=== PATIENT | female | born 2000 | race Caucasian/White ===

== ENCOUNTER 2025-03-26 17:54 | Emergency (ER) | payer OTHER, SELFPAY ==
--- OUTSIDE RECORDS SUMMARY | 2025-03-25 12:20 | XMS_ITS | Encounter Summary ---
Author Organization [facility] Address [address] [place] [id number] Care Team Providers Care Machine Tool Designer Name Role Phone Anna Brown NP Primary Care Provider [phone] Reason for Referral * Consultation (Routine) - New Request Specialty Diagnoses / Procedures Referred By Robert worley Referred To Contact NEPHROLOGY Diagnoses Kidney congenitally absent, left Procedures OFFICE/OUTPATIENT NEW LOW MDM 30-44 MINUTES OFFICE/OUTPT VISIT,NEW,LEVL IV OFFICE/OUTPT VISIT,NEW,LEVL V OFFICE/OUTPT VISIT,EST,LEVL III OFFICE/OUTPT VISIT,EST,LEVL IV OFFICE/OUTPT VISIT,EST,LEVL V Anna Brown NP [address] [place] [address] Phone: tel: fax: [facility] Medical [facility] [place] [id number] [place] [address] Phone: tel: fax: Referral ID Status Reason Start Date Expiration Date Visits Requested Visits Authorized [id number] New Request Specialty Services 04/24/2026 1 1 Reason for Visit * Reason Comments Weight Problem Encounter Details Date Type Department Care Team (Late st Contact Info) Description 03/25/2025 12:20 PM CDT Office Visit [facility] [place] [address] [place] [address] Anna Brown NP [address] [facility] [address] [place] [address] Weight Problem Social History Tobacco Use Types Packs/Day Years Used Date Smoking Tobacco: Never Passive Smoke Exposure: Never Smokeless Tobacco: Never Alcohol Use Standard Drinks/Week Comments Yes 8 (1 standard drink = 0.6 oz pur e alcohol) PHQ-2 Answer Date Recorded Patient Health Questionnaire-2 Score 1 02/22/2025 Comments No Sex and Gender Information Value Date Recorded Sex Assigned at Female 11/15/2024 10:41 AM CDT Legal Sex Female 10:16 AM CDT Gender Identity Female 11/15/2024 10:41 AM CDT Sexual Orientation Not on file documented as of this encounter Last Filed Vital Signs Vital Sign Reading Time Taken Comments Blood Pressure 115/83 03/25/2025 12:18 PM CDT Pulse 88 03/25/2025 12:18 PM CDT Temperature 36.6 C (97.8 F) 03/25/2025 12:18 PM CDT Respiratory Rate 16 03/25/2025 12:18 PM CDT Oxygen Saturation 98% 03/25/2025 12:18 PM CDT Inhaled Oxygen Concentration - - Weight 84.8 kg (187 lb) 03/25/2025 12:18 PM CDT Height 157.5 cm (5' 2) 03/25/2025 12:18 PM CDT Body Mass Index 34.2 03/25/2025 12:18 PM CDT documented in this encounter Patient Instructions * Patient Instructions* Anna Brown NP - 03/25/2025 12:20 PM CDT Paleo or mediterranean diet - high in lean meats such as chicken, fish, turkey, fresh fruit and vegetables. Limit carbohydrates and choose whole grain products (potatoes, bread, pasta, rice) limit processed food, limit red meat and greasy/fried/fatty foods. 64 oz water Increase protein, myfitnesspal Switch from zoloft to prozac, stop zoloft start prozac the next day. Monitor for dizziness, if occurs may take 1/2 tab zoloft for 5-7 days with prozac. documented in this encounter Progress Notes * Anna Brown NP - 03/25/2025 12:20 PM CDTSummary: weight gain Images from the original note were not included. Internal Medicine Outpatient Progress Note CC: Weight Problem HPI: Elaine Jaime is a 24-year-old female who presents to discuss weight gain. History of Present Illness The patient presents with weight gain, anxiety, and kidney issues. She has experienced gradual weight gain from 170 to 187 pounds over the past few years. She attributes this to her control and anxiety medications, particularly Zoloft, which she started last March. She reports fluctuating appetite and a diet consisting of cereal, oatmeal, pasta or turkey, and balanced dinners. She occasionally consumes Fruit Loops with 2% milk before bed, has eliminated soda, and reduced caffeine intake, improving bladder function. She finds Zoloft effective for anxiety but has not engaged in sexual intercourse recently due to her partner's erectile dysfunction so she denies known sexual side effects. Weight has increased 15 pounds since last year starting sertraline. Recent CT scan showing normal right kidney with congenitally absent left kidney. Patient was referred to urology for consult -they recommend seeing a house manager, regular labs to evaluate kidney function. They also recommend avoiding dark soda and making sure she stays well-hydrated. States Topamax has helped with her headaches, she is unsure if her appetite has change states her appetite fluctuates. Patient has history of below: Patient Active Problem List Diagnosis Irritable bowel syndrome with constipation Dyspareunia, female Family history of breast cancer Other fatigue History of iron deficiency Anxiety Migraine without aura and without status migrainosus, not intractable Kidney congenitally absent, left Abnormal kidney function Review of Systems Constitutional: Positive for unexpected weight change. HENT: Negative. Eyes: Negative. Respiratory: Negative. Cardiovascular: Negative. Neurological: Negative. Psychiatric/Behavioral: Negative. Past Medical History: Past Medical History[1] Family History: Family History[2] Social History: Social History[3] Medications: Medications Taking[4] Allergies: Review of patient's allergies indicates: Latex, Biaxin [clarithromycin], Cephalosporins, Codeine, Omnicef [cefdinir], and Vantin [cefpodoxime] ? Objective: Filed Vitals: 03/25/25 1218 BP: 115/83 Pulse: 88 Resp: 16 Temp: 97.8 ??F (36.6 ??C) TempSrc: Core SpO2: 98% Weight: 84.8 kg (187 lb) Height: 1.575 m (5' 2) Body mass index is 34.2 kg/m??. Physical Exam Constitutional: Appearance: Normal appearance. Eyes: Conjunctiva/sclera: Conjunctivae normal. Cardiovascular: Rate and Rhythm: Normal rate and regular rhythm. Heart sounds: Normal heart sounds. No murmur heard. Pulmonary: Effort: Pulmonary effort is normal. No respiratory distress. Breath sounds: Normal breath sounds. No wheezing. Skin: General: Skin is warm and dry. Neurological: Mental Status: She is alert. Psychiatric: Mood and Affect: Mood normal. Judgment: Judgment normal. Assessment and Plan: Assessment & Plan 1. Weight gain: - 15-pound gain over the past year, likely due to medication. - Recommended switch from Zoloft to Prozac 20 mg, discontinue Zoloft and start Prozac the next day.If dizziness occurs, take half a tablet of Zoloft for a few days while starting Prozac. - Increase protein and water intake, reduce carbohydrates, consider intermittent fasting, monitor calories with MyFitnessPal, replace bedtime snack with lower- calorie option, increase physical activity. Referral to rubber down if needed. - Declines medication at this time, consider at a later date if still struggling with weight loss. 2. Anxiety: - Current management effective. - Discussed switch to Prozac, which is weight neutral. Informed about potential initial side effects like dizziness. If adverse effects occur, overlap Zoloft and Prozac by taking half a tablet of Zoloft for a few days. 3. Left kidney congenitally absent - Schedule appointment with house manager for further evaluation and management. Referral sent. - Regular blood work to monitor kidney function, maintain hydration, avoid dark sodas and NSAIDs. Most recent GFR 79 slightly reduced with no microalbuminuria. 1. Weight gain 2. Kidney congenitally absent, left - Ambulatory referral to Nephrology ([facility]) 3. Abnormal kidney function 4. AVA (generalized anxiety disorder) - FLUoxetine (PROZAC) 20 MG capsule; Take 1 capsule (20 mg total) by mouth daily. Dispense: 30 capsule; Refill: 2 Tobacco: Counseling given: Not Answered I personally spent a total of 25 minutes on the day of the encounter. This includes [id number] and lhz-lhxq-dl-face time I provided on the day of the encounter & excludes time spent performing separately reportable services. Side effects and less common but more severe adverse effects of recommended medical therapies were explained to the patient. Patient reminded to use MyChart or telephone follow up prn if symptoms change, worsen, or persist, or if side effect of treatment is experienced. RTC in August as scheduled, sooner if needed with medication change. This document was created in part by using voice recognition software and was reviewed by the author. If errors are present, please bring them to your provider's attention. ANNA BROWN NP 03/25/2025 [facility] [[facility]] Past Medical History: Diagnosis Date Anxiety Cholelithiasis PONV (postoperative nausea and vomiting) Small kidney on 1 of her kidneys Wears contact lenses [2] Family History Problem Relation Name Age of Onset Hypertension Mother Svetlana Jaime Breast Cancer Mother Svetlana Jaime Cancer Mother Svetlana Jaime Heart Disease Father Ehsan Jaime [place]- 6 stents Liver Disease Father Ehsan Jaime Kidney Disease Paternal Grandmother Lauren Jaime Ovarian Cancer Paternal Grandmother Lauren Jaime Diabetes Maternal Grandmother Miley Kenny [3] Social History Tobacco Use Smoking status: Never Passive exposure: Never Smokeless tobacco: Never Vaping Use Vaping status: Never Used Substance Use Topics Alcohol use: Yes Alcohol/week: 8.0 standard drinks of alcohol Types: 1 Glasses of wine, 2 Shots of liquor, 3 Standard drinks or equivalent per week Drug use: Never [4] Outpatient Medications Marked as Taking for the 03/25/25 encounter (Office Visit) with Anna Brown NP Medication Sig Dispense Refill baclofen (LIORESAL) 10 MG tablet Take 1 tablet (10 mg total) by mouth 3 (three) times daily. 15 tablet 0 Blood Glucose Monitoring Suppl (ONE TOUCH ULTRA 2) w/Device Kit Check blood sugar twice a day before meals. 1 kit 0 desipramine (NORPRAMIN) 10 MG Tab tablet 2 tablets (20 mg total) nightly at bedtime. dicyclomine (BENTYL) 10 MG capsule Take 1 capsule (10 mg total) by mouth as needed. FLUoxetine (PROZAC) 20 MG capsule Take 1 capsule (20 mg total) by mouth daily. 30 capsule 2 Glucose Blood test strip Check blood sugar twice a day before meals. 300 strip 1 KURVELO 0.15-30 MG-MCG tablet Take 1 tablet by mouth daily. Lancets (ONETOUCH ULTRASOFT) lancets Check blood sugar twice a day before meals. 100 each 1 multi vitamin/minerals (THERA-M ENHANCED) tablet Take 1 tablet by mouth daily. ondansetron (ZOFRAN-ODT) 4 MG disintegrating tablet Take 1 tablet (4 mg total) by mouth every 6 (six) hours as needed for Nausea. 30 tablet 2 topiramate (TOPAMAX) 25 MG tablet Take 1 tablet (25 mg total) by mouth daily. For headaches 90 tablet 1 ubrogepant (UBRELVY) 100 MG tablet Take 1 tablet (100 mg total) by mouth 2 (two) times daily as needed for Migraine. Max of 2 tablets (200 mg) in 24 hours 10 tablet 2 documented in this encounter Plan of Treatment Upcoming Encounters Date Type Department Care Team (Late st Contact Info) Description 07/01/2025 2:00 PM X RAY NURSE [facility] [address] [facility], [place] [address] [place] [address] Jerry Sparrow MD [address] [facility] [address] [place] [address] 08/21/2025 8:00 AM CDT [facility] [place] [address] [place] [address] Anna Brown NP [address] [place] [address] Scheduled Referrals Name Type Priority Associated Diagnoses Orde r Schedule Ambulatory referral to Nephrology ([facility]) Referral Routine Kidney congenitally absent, left Ordered: 03/25/2025 documented as of this encounter Visit Diagnoses Diagnosis Weight gain- Primary Abnormal weight gain Kidney congenitally absent, left Congenital renal agenesis and dysgenesis Abnormal kidney function Unspecified disorder of kidney and ureter AVA (generalized anxiety disorder) Generalized anxiety disorder documented in this encounter Additional Health Concerns Assessment Noted Time PHQ-9 Depression Total Score: 4 02/23/20 25 9:26 AM CDT documented as of this encounter Care Teams Machine Tool Designer Relationship Specialty Start Date End Date Anna Brown, STORE RECEIVER [address] [facility] [address] [place] [address] PCP - General NURSE PRACTITIONER 04/03/24 documented as of this encounter
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
[2025-03-26 17:58] VITALS: BP 151/96; PULSE 102; RESP 16; TEMP 36.4; O2SAT 100
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
[2025-03-26 18:58] LABS: BEDSIDEPREGUCG Negative (Negative)
[2025-03-26 19:10] LABS: Estimated CRCL calculation 107 ml/min; Estimated Glomerular Filt Rate > 60
[2025-03-26 19:23] LABS: Hematocrit 43.9 % (37.0-47.0); Hemoglobin 14.2 g/dL (12.0-15.0); Immature Granulocyte Percent A 0.6 % (0-0.5); Lymphocytes Absolute Auto 3.12 K/mm3 (0.9-3.2); Mean Corpuscular HGB Conc 32.3 g/dl (32-36); Mean Corpuscular Hemoglobin 29.0 pg (26-34); Mean Corpuscular Volume 89.8 fl (80-100); Nucleated Red Blood Cells Absolute Auto 0.000 K/mm3 (0.0-0.012); Nucleated Red Blood Cells Perc 0.0 % (0.0-0.2); Platelet Count Result 306 k/mm3 (150-375); Red Blood Count 4.89 M/mm3 (4.2-5.4); White Blood Count 14.1 K/mm3 (4.5-10.0)
[2025-03-26 19:33] LABS: Pregnancy On Board Control Positive
[2025-03-26 19:35] LABS: Add Urine Microscopic? YES; Appearance Urine Turbid (Clear); Glucose Urine UA Negative (Negative); Leukocyte Esterase Ur Trace LEU/UL (Negative); Nitrate Urine Negative (Negative); Non Pathogenic Casts 0-2; Specific Grav Ur 1.024 (1.001-1.035)
[2025-03-26 19:38] LABS: Alanine Aminotransferase 17 U/L (6-35); Albumin Level 4.7 g/dL (3.5-5.1); Alkaline Phosphatase 78 U/L (38-126); Anion Gap 10 mmol/L (4-12); Aspartate Amino Transferase 26 U/L (14-36); Bilirubin,Total 0.4 mg/dL (0.2-1.3); Blood Urea Nitrogen 18 mg/dL (7-17); Calcium 9.8 mg/dL (8.4-10.2); Carbon Dioxide 24 mmol/L (22-30); Chloride 103 mmol/L (98-107); Estimated CRCL calculation 99 ml/min; Estimated Glomerular Filt Rate > 60; Glucose 88 mg/dL (65-110); Potassium 3.8 mmol/L (3.4-5.0); Sodium 137 mmol/L (137-145); Total Protein 7.9 g/dL (6.3-8.2)
[2025-03-26] MEDS: fentaNYL CITRATE INJ (*CRX) 100 MCG/2 ML VIAL 50 MCG IV PUSH (19:48)
--- OUTSIDE RECORDS SUMMARY | 2025-03-26 19:57 | XMS_ITS | Encounter Summary ---
Author Organization [facility] Address [address] [place] [address] Care Team Providers Care Script Girl Name Role Phone Gerda Brown ARCHITECTURE DEPARTMENT CHAIR Primary Care Provider [phone] Encounter Details Date Type Department Care Team (Latest Contact Info) Description 03/07/2025 Results Follow-Up [facility] [address] [place] [address] Gerda Brown, ARCHITECTURE DEPARTMENT CHAIR [address] [place] [address] ALBUMIN URINE RANDOM W/CREATININE, CHLAM/GC/TRICHOMONA S PROFILE Social History Tobacco Use Types Packs/Day Years [...] on file documented as of this encounter Plan of Treatment Upcoming Encounters Date Type Department Care Team (Late st Contact Info) Description 07/01/2025 2:00 PM DIRECTOR MATERNAL CHILD Office Visit [facility] [address], [address] [id number] Jerry Sparrow MD 3 [facility], [address] [address] 08/21/2025 8:00 AM CDT Office Visit [facility] [place] [address] [place] [address] Gerda Brown NP [address] [place] [address] documented as of this encounter Visit Diagnoses Not on filedocumented in this encounter Additional Health Concerns Assessment Noted Time PHQ-9 Depression Total Score: 4 02/23/20 25 9:26 AM CDT documented as of this encounter Care Teams Script Girl Relationship Specialty Start Date End Date Gerda Brown NP [address] [place] [address] PCP - General NURSE PRACTITIONER 04/03/24 documented as of this encounter
--- OUTSIDE RECORDS SUMMARY | 2025-03-26 19:57 | XMS_ITS | Encounter Summary ---
Author Organization [facility] Address [address] [place] [address] Phone Care Team Providers Care Bobbin Sorter Name Role Phone Gerda Brown NP Primary Care Provider [phone] Encounter Details Date Type Department Care Team (Late st Contact Info) Description 06/16/2023 Orders Only [facility] Scanning, Provider Social History Tobacco Use Types Packs/Day Years Used Date Smoking Tobacco: Never Smokeless Tobacco: Never Alcohol Use Standard Drinks/Week Comments Yes 0 (1 standard drink = 0.6 oz pur e alcohol) Comments Unknown Sex and Gender Information Value Date Recorded Sex Assigned at Not on file 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 Gender Identity Not on file Sexual Orientation Not on file documented as of this encounter Plan of Treatment Not on file documented as of this encounter Procedures Procedure Name Priority Date/Time Associated Diagnosis Comments SCAN - LABS 06/16/2023 documented in this encounter Results * SCAN - LABS (06/16/2023) us Provider Scanning Edited Result - Final documented in this encounter Visit Diagnoses Not on filedocumented in this encounter Care Teams Bobbin Sorter Relationship Specialty Start Date End Date Gerda Brown NP [address] [place] [address] PCP - General Internal Medicine 08/13/24 documented as of this encounter
--- OUTSIDE RECORDS SUMMARY | 2025-03-26 19:57 | XMS_ITS | Clinical Summary ---
Author Organization [email or web address] Address [address] [place] [address] Care Team Providers Care Pharmacy Grad Intern Name Role Phone Gerda Brown NP Primary Care Provider [phone] Allergies Active Allergy Reactions Criticality Noted Date Comments Bacitracin Zinc-Polymyxin B Other (See comments) 08/13/2024 Reaction: Cephalosporins Cephapirin Other (See comments) 08/13/2024 Reaction: Clarithromycin Codeine Hives,Itching,Rash High 10/23/2020 Latex Redness Low 04/15/2023 Sodium Benzoate Rash Medium 12/17/2010 Rash Medications levonorgestreL- ethinyl estrad (SEASONALE) 0.15 mg-30 mcg (91) per tablet TK 1 T PO QD 11/21/2019 Active multivitamin capsule Take 1 capsule by mouth daily Active sertraline (ZOLOFT) 25 mg tablet Take 1 tablet (25 mg total) by mouth daily 04/04/2024 Active desipramine (NOPRAMIN) 10 mg tablet Take 2 tablets (20 mg total) by mouth nightly 60 tablet 11 08/13/2024 Active dicyclomine (BENTYL) 10 mg capsule Take 1 capsule (10 mg total) by mouth 4 (four) times a day as needed (abdominal pain) 30 capsule 11 08/13/2024 Active Active Problems Problem Noted Date Diagnosed Date Symptoms referable to hand joint 12/17/2019 Dysfunction of eustachian tube 03/19/2015 Non-smoker 03/19/2015 Perforation of ear drum 03/11/2015 Arthralgia of shoulder 12/15/2012 Surgical History Surgery Date Site/Laterality Comments TONSILLECTOMY WISDOM TOOTH EXTRACTION Family History Medical History Relation Name Comments Heart disease Father Arthritis Mother Relation Name Status Comments Father Mother Social History Tobacco Use Types Packs/Day Years Used Date Smoking Tobacco: Never Smokeless Tobacco: Never Tobacco Cessation:Counseling Given: Not Answered Alcohol Use Standard Drinks/Week Comments Yes 0 (1 standard drink = 0.6 oz pur e alcohol) Comments Unknown Sex and Gender Information Value Date Recorded Sex Assigned at Not on file 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 Gender Identity Not on file Sexual Orientation Not on file Obstetrics History Last Filed Vital Signs Vital Sign Reading Time Taken Comments Blood Pressure 117/81 08/13/2024 8:17 AM CDT Pulse 79 08/13/2024 8:17 AM CDT Temperature 36.6 C (97.9 F) 08/13/2024 8:17 AM CDT Respiratory Rate - - Oxygen Saturation 97% 02/05/2010 4:30 PM CDT Inhaled Oxygen Concentration - - Weight 81.6 kg (180 lb) 08/13/2024 8:17 AM CDT Height 157.5 cm (5' 2) 08/13/2024 8:17 AM CDT Body Mass Index 32.92 08/13/2024 8:17 AM CDT Plan of Treatment Health Maintenance Due Date Last Done Comments Cervical Cancer Screening 1999 Depression Screening 1999 Hepatitis C Screening 1999 Regular Well Visit/Exam 18-64 09/08/2017 DTaP/Tdap/Td Vaccine (7 - Td or Tdap) 01/15/2021 01/15/2011, 12/03/2004, 03/14/2001, Additional history exists Influenza Vaccine (#1) 2025 , 04/12/2022, 03/03/2021, Additional history exists Hepatitis B Screening Completed 06/20/2000 , 1999, 1999 Pneumococcal vaccine <65 Completed 001, 05/10/2000, 01/25/2000, Additional history exists Varicella Vaccines Completed 05/06/2007, 09/24/2000 HPV Vaccines Completed 07/12/2013, 12/05, 12/24/2011 Insurance [facility] Care Teams Pharmacy Grad Intern Relationship Specialty Start Date End Date Gerda Brown NP [address] [place] [address] PCP - General Internal Medicine 08/13/24
--- OUTSIDE RECORDS SUMMARY | 2025-03-26 19:57 | XMS_ITS | Encounter Summary ---
Author Organization [facility] Address [address] [place] [address] Care Team Providers Care Health Promotion Coordinator Name Role Phone Gerda Brown MAPPING ENGINEER Primary Care Provider [phone] Encounter Details Date Type Department Care Team (Latest Contact Info) Description 02/22/2025 Results Follow-Up [facility] - [place] [address] [place] [address] Gerda Brown, MAPPING ENGINEER [address] [place] [address] CT ABD+PEL KIDNEY STONE, CBC W/DIFF AUTOMATED, COMPREHENSIVE METABOLIC PANEL, Additional followed-up results: 2 Social History Tobacco Use Types Packs/Day Years [...] on file documented as of this encounter Functional Status * Over the past 2 weeks, how often have you been bothered by any of the following problems? Question Answer Date of Assessment Author Status Little interest or pleasure in doing things Several days 02/22/2025 9:26 AM CDT Tonia Mayer MA Acti ve Feeling down, depressed, or hopeless Not at all 02/22/2025 9:26 AM Tonia Miranda MA Active Patient Health Questionnaire-2 Score 1 02/22/2025 9:26 AM Tonia Miranda M A Active * Question Answer Date of Assessment Author Status Trouble falling or staying asleep, or sleeping too much Several days 02/22/2025 9:26 AM Tonia Miranda MA Active Feeling tired or having little energy Several days 02/22/2025 9:26 AM Tonia Miranda MA Active Poor appetite or overeating Several days 02/22/2025 9:26 AM Tonia Miranda MA Active Feeling bad about yourself - or that you are a failure or have let yourself or your family down Not at all 02/22/2025 9:26 AM Tonia Miranda MA Active Trouble concentrating on things, such as reading the newspaper or watching television Not at all 02/22/2025 9:26 AM Tonia Miranda MA Active Moving or speaking so slowly that other people could have noticed? Or the opposite - being so fidgety or restless that you have been moving around a lot more than usual. Not at all 02/22/2025 9:26 AM Tonia Miranda MA Active Thoughts that you would be better off or hurting yourself in some way Not at all 02/22/2025 9:26 AM Tonia Miranda MA Active Patient Health Questionnaire-9 Score 4 02/22/2025 9:26 AM Tonia Miranda MA Active * If you checked off any problems on this questionnaire so far, Question Answer Date of Assessment Author Status How difficult have these problems made it for you to do your work, take care of things at home, or get along with other people? Somewhat difficult 02/22/2025 9:26 AM Tonia Miranda MA Active * Over the last 2 weeks, how often have you been bothered by any of the following problems? Question Answer Date of Assessment Author Status Feeling nervous, anxious, or on edge 0 02/22/2025 9:27 AM Tonia Miranda MA Acti ve Not being able to stop or control worrying 0 02/22/2025 9:27 AM CDT Tonia Mayer MA Act karly Worrying too much about different things 0 02/22/2025 9:27 AM CDT Tonia Mayer MA Act karly Trouble relaxing 0 02/22/2025 9:27 AM CDT Tonia Mayer MA Active Being so restless that it is hard to sit still 0 02/22/2025 9:27 AM CDT Tonia Mayer MA Active Becoming easily annoyed or irritable 0 02/22/2025 9:27 AM CDT Tonia Mayer MA Acti ve Feeling afraid as if something awful might happen 0 02/22/2025 9:27 AM CDT Tonia Mayer MA Acti ve AVA-7 Total Score 0 02/22/2025 9:27 AM CDT Tonia Mayer MA Active documented as of this encounter Plan of Treatment Upcoming Encounters Date Type Department Care Team (Late st Contact Info) Description 07/01/2025 2:00 PM OCCUPATIONAL THERAPIST ASSISTANTS [facility], [address] [address] Jerry Sparrow MD 3 [facility], [address] [address] 08/21/2025 8:00 AM CDT [facility] [place] [address] [place] [address] Gerda Brown NP [address] [place] [address] documented as of this encounter Visit Diagnoses Not on filedocumented in this encounter Additional Health Concerns Assessment Noted Time PHQ-9 Depression Total Score: 4 02/23/20 25 9:26 AM CDT documented as of this encounter Care Teams Health Promotion Coordinator Relationship Specialty Start Date End Date Gerda Brown, MAPPING ENGINEER [address] [facility] [place] [address] PCP - General NURSE PRACTITIONER 04/03/24 documented as of this encounter
--- OUTSIDE RECORDS SUMMARY | 2025-03-26 19:57 | XMS_ITS | Encounter Summary ---
Author Organization [facility] Address [address] [place] [address] Care Team Providers Care Fur Comber Name Role Phone Gerda Brown ENAMEL CRACKER Primary Care Provider [phone] Encounter Details Date Type Department Care Team (Late st Contact Info) Description 05/17/2024 MyChart Message Enc [facility] [address] [place] [address] Gerda Brown, ENAMEL CRACKER [address] [place] [address] Blood Sugar Social History Tobacco Use Types Packs/Day Years Used Date Smoking Tobacco: Never Passive Smoke Exposure: Never Smokeless Tobacco: Never Alcohol Use Standard Drinks/Week Comments Yes 2 (1 standard drink = 0.6 oz pur e alcohol) PHQ-2 Answer Date Recorded Patient Health Questionnaire-2 Score 0 04/04/2024 Comments No Sex and Gender Information Value Date Recorded Sex Assigned at Female 11/15/2024 10:41 AM CDT Legal Sex Female 10:16 AM CDT Gender Identity Female 11/15/2024 10:41 AM CDT Sexual Orientation Not on file documented as of this encounter Plan of Treatment Upcoming Encounters Date Type Department Care Team (Late st Contact Info) Description 07/01/2025 2:00 PM LIME BOILER Office Visit [facility] 3 [facility], [address] [phone] Jerry Sparrow MD 3 [facility], [address] [address] 08/21/2025 8:00 AM CDT Office Visit [facility] [place] [address] [place] [address] Gerda Brown, ENAMEL CRACKER [address] [place] [address] documented as of this encounter Visit Diagnoses Not on filedocumented in this encounter Additional Health Concerns Assessment Noted Time PHQ-9 Depression Total Score: 3 04/04/20 24 12:57 PM CDT documented as of this encounter Care Teams Fur Comber Relationship Specialty Start Date End Date Gerda Brown NP [address] [place] [address] PCP - General NURSE PRACTITIONER 04/03/24 documented as of this encounter
--- OUTSIDE RECORDS SUMMARY | 2025-03-26 19:57 | XMS_ITS | Encounter Summary ---
Author Organization [facility] Address [address] [place] [address] Care Team Providers Care Senior Devops Engineer Name Role Phone Gerda Brown BUSINESS SUPPORT LIAISON Primary Care Provider [phone] Encounter Details Date Type Department Care Team (Late st Contact Info) Description 12/18/2024 MyChart Message Enc [facility] Mult[facility]pecialty [facility] [address] [place] [address] Gerda Brown, BUSINESS SUPPORT LIAISON [address] [place] [address] Allergic Reaction Social History Tobacco Use Types Packs/Day Years [...] st Contact Info) Description 07/01/2025 2:00 PM GAS METER CHECKER Office Visit [facility]pecialty [facility] 3 [facility], [address] [phone] Jerry Sparrow MD 3 [facility], [address] [address] 08/21/2025 8:00 AM CDT Office Visit [facility] [place] [address] [place] [address] Gerda Brown, BUSINESS SUPPORT LIAISON [address] [place] [address] documented as of this encounter Visit Diagnoses Not on filedocumented in this encounter Additional Health Concerns Assessment Noted Time PHQ-9 Depression Total Score: 3 04/04/20 24 12:57 PM CDT documented as of this encounter Care Teams Senior Devops Engineer Relationship Specialty Start Date End Date Gerda Brown NP [address] [place] [address] PCP - General NURSE PRACTITIONER 04/03/24 documented as of this encounter
--- OUTSIDE RECORDS SUMMARY | 2025-03-26 19:57 | XMS_ITS | Encounter Summary ---
Author Organization [facility] Address [facility] [place] [address] Care Team Providers Care Professor Of Genetics Name Role Phone Gerda Brown SOCK KNITTING MACHINE OPERATOR Primary Care Provider [phone] Encounter Details Date Type Department Care Team (Latest Contact Info) Description 11/13/2024 Avenda Systemshart Message Enc [facility] Multispecialty [facility] [place] [address] [place] [address] Gerda Brown, SOCK KNITTING MACHINE OPERATOR [address] [place] [address] Consistent Headache Social History Tobacco Use Types Packs/Day Years Used Date Smoking Tobacco: Never Passive Smoke Exposure: Never Smokeless Tobacco: Never Alcohol Use Standard Drinks/Week Comments Yes 7 (1 standard drink = 0.6 oz pur [...] st Contact Info) Description 07/01/2025 2:00 PM HEALTH SERVICE COORDINATOR Office Visit [facility] Multispecialty [facility] 3 [facility], [address] [phone] Jerry Sparrow MD 3 [facility], [address] [address] 08/21/2025 8:00 AM CDT Office Visit [facility] [place] [address] [place] [address] Gerda Brown, SOCK KNITTING MACHINE OPERATOR [address] [place] [address] documented as of this encounter Visit Diagnoses Not on filedocumented in this encounter Additional Health Concerns Assessment Noted Time PHQ-9 Depression Total Score: 3 04/04/20 24 12:57 PM CDT documented as of this encounter Care Teams Professor Of Genetics Relationship Specialty Start Date End Date Gerda Brown NP [address] [place] [address] PCP - General NURSE PRACTITIONER 04/03/24 documented as of this encounter
--- OUTSIDE RECORDS SUMMARY | 2025-03-26 19:57 | XMS_ITS | Clinical Summary ---
Author Organization [facility] Address [address] [place] [phone] Phone Care Team Providers Care Mint Machine Operator Name Role Phone Randal Jimenez Primary Care Provider [phone] Allergies Active Allergy Reactions Criticality Noted Date Comments Cefdinir Hives High 01/23/2023 Cefpodoxime Hives High 01/23/2023 Cefuroxime Axetil Diarrhea Low 01/23/2023 Clarithromycin Hives High 01/23/2023 Codeine Hives,Itching High 01/23/2023 Latex Other (See Comments) 01/23/2023 Skin irritation Medications OTHERIndication s: contril pill Provider please include Medication name, dose, route and frequency Active Family History Medical History Relation Name Comments Heart Disease Father Heart Disease Mother Relation Name Status Comments Father Alive Mother Alive Social History Tobacco Use Types Packs/Day Years Used Date Smoking Tobacco: Never Tobacco Cessation:Counseling Given: Not Answered Alcohol Use Standard Drinks/Week Comments Yes 0 (1 standard drink = 0.6 oz pur e alcohol) social Feeling Safe Answer Date Recorded Are you in a relationship wi th someone who hurts you emotionally and/or physically? No 01/23/2023 Comments Unknown Sex and Gender Information Value Date Recorded Sex Assigned at Not on file Legal Sex Female 12:57 PM CDT Gender Identity Not on file Sexual Orientation Not on file Last Filed Vital Signs Vital Sign Reading Time Taken Comments Blood Pressure 97/63 01/23/2023 4:00 PM CDT Pulse - - Temperature 36.4 C (97.5 F) 01/23/2023 1:04 PM CDT Respiratory Rate 17 01/23/2023 1:04 PM CDT Oxygen Saturation 97% 01/23/2023 4:00 PM CDT Inhaled Oxygen Concentration - - Weight 70.8 kg (156 lb) 01/23/2023 1:04 PM CDT Height 157.5 cm (5' 2) 01/23/2023 1:04 PM CDT Body Mass Index 28.53 01/23/2023 1:04 PM CDT Plan of Treatment Health Maintenance Due Date Last Done Comments CERVICAL CANCER SCREENING 09/08/2020 HPV/Cotest (21-29) 09/08/2020 PAP SMEAR 09/08/2020 DTAP/TDAP/TD VACCINES (7 - T d or Tdap) 01/15/2021 01/15/2011, 12/03/2004, 03/14/2001, Additional history exists INFLUENZA VACCINE (#1) 2025 , 03/19/2019, 02/14/2014, Additional history exists HEPATITIS B VACCINES Completed 06/20/2000, 1999, 1999 HPV VACCINES Completed 07/12/2013, 12/05, 12/24/2011 Insurance [employer] OPEN ACCESS HMO Care Teams Mint Machine Operator Relationship Specialty Start Date End Date Randal Jimenez DO [address] [address] [place] [phone] PCP - General Internal Medicine 01/23/23
--- OUTSIDE RECORDS SUMMARY | 2025-03-26 19:57 | XMS_ITS | Encounter Summary ---
Author Organization [facility] Address [address] [place] [address] Care Team Providers Care Bilingual Hr Generalist Name Role Phone Gerda Brown TRACTOR MECHANIC HELPER Primary Care Provider [phone] Encounter Details Date Type Department Care Team (Late st Contact Info) Description 05/08/2024 Fundationhart Message Enc [facility]pecialty [facility] [address] [place] [address] Gerda Brown, TRACTOR MECHANIC HELPER [address] [place] [address] Weakness Social History Tobacco Use Types Packs/Day Years [...] st Contact Info) Description 07/01/2025 2:00 PM PAINTER SUPERVISOR Office Visit [facility] Mult[facility]pec[facility]ty [facility] 3 [facility], [address] [phone] Jerry Sparrow MD 3 [facility], [address] [address] 08/21/2025 8:00 AM CDT Office Visit [facility] [place] [address] [place] [address] Gerda Brown, TRACTOR MECHANIC HELPER [address] [place] [address] documented as of this encounter Visit Diagnoses Not on filedocumented in this encounter Additional Health Concerns Assessment Noted Time PHQ-9 Depression Total Score: 3 04/04/20 24 12:57 PM CDT documented as of this encounter Care Teams Bilingual Hr Generalist Relationship Specialty Start Date End Date Gerda Brown NP [address] [place] [address] PCP - General NURSE PRACTITIONER 04/03/24 documented as of this encounter
--- OUTSIDE RECORDS SUMMARY | 2025-03-26 19:58 | XMS_ITS | Clinical Summary ---
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 Active KURVELO 0.15-30 MG-MCG tablet Take 1 tablet by mouth daily. 02/23/20 24 Active desipramine (NORPRAMIN) 10 MG Tab tablet 2 tablets (20 mg total) nightly at bedtime. Active Blood Glucose Monitoring Suppl (ONE TOUCH ULTRA 2) w/Device KitIndications:Hy poglycemia Check blood sugar twice a day before meals. 1 kit 05/16/20 24 Active Glucose Blood test stripIndications: Hypoglycemia Check blood sugar twice a day before meals. 300 strip 1 05/16/20 24 Active Lancets (ONETOUCH ULTRASOFT) lancetsIndication s:Hypoglycemia Check blood sugar twice a day before meals. 100 each 1 05/16/20 24 Active dicyclomine (BENTYL) 10 MG capsule Take 1 capsule (10 mg total) by mouth as needed. 11/01/19 25 Active ondansetron (ZOFRAN-ODT) 4 MG disintegrating tabletIndications :Nausea Take 1 tablet (4 mg total) by mouth every 6 (six) hours as needed for Nausea. 30 tablet 2 11/16/19 25 Active ubrogepant (UBRELVY) 100 MG tabletIndications :Migraine without aura and without status migrainosus, not intractable Take 1 tablet (100 mg total) by mouth 2 (two) times daily as needed for Migraine. Max of 2 tablets (200 mg) in 24 hours 10 tablet 2 12/14/19 25 Active baclofen (LIORESAL) 10 MG tablet Take 1 tablet (10 mg total) by mouth 3 (three) times daily. 15 tablet 02/27/20 25 Active topiramate (TOPAMAX) 25 MG tabletIndications :Migraine without aura and without status migrainosus, not intractable Take 1 tablet (25 mg total) by mouth daily. For headaches 90 tablet 1 03/06/20 25 Active FLUoxetine (PROZAC) 20 MG capsuleIndication s:AVA (generalized anxiety disorder) Take 1 capsule (20 mg total) by mouth daily. 30 capsule 2 03/25/20 25 Active sertraline (ZOLOFT) 50 MG tabletIndications :Anxiety Take 1 tablet (50 mg total) by mouth daily. 30 tablet 2 11/01/19 25 2024 Discontinued(R eorder) topiramate (TOPAMAX) 25 MG tabletIndications :Migraine without aura and without status migrainosus, not intractable Take 1 tablet (25 mg total) by mouth daily. For headaches 30 tablet 2 11/20/19 25 2024 Discontinued(R eorder) sulfamethoxazole- trimethoprim (BACTRIM DS) 800-160 MG tabletIndications :Dysuria Take 1 tablet by mouth 2 (two) times daily for 5 days. 10 tablet 02/23/20 25 2024 phenazopyridine (PYRIDIUM) 200 MG tablet Take 1 tablet (200 mg total) by mouth 3 (three) times daily as needed. 6 tablet 02/27/20 25 2024 Discontinued sertraline (ZOLOFT) 50 MG tabletIndications :Anxiety Take 1 tablet (50 mg total) by mouth daily. 90 tablet 1 03/06/20 25 2024 Discontinued(R eorder) sertraline (ZOLOFT) 50 MG tabletIndications :Anxiety Take 1 tablet (50 mg total) by mouth daily. 90 tablet 1 102024 Discontinued Active Problems Problem Noted Date Diagnosed Date Abnormal kidney function 03/25/2025 Migraine without aura and wi thout status migrainosus, not intractable 03/06/2025 Kidney congenitally absent, left 03/06/2025 Irritable bowel syndrome with constipation 04/04 Dyspareunia, female 04/04/2024 Family history of breast cancer 04/04/2024 Other fatigue 04/04/2024 History of iron deficiency 04/04/2024 Anxiety 04/04/2024 Resolved Problems Problem Noted Date Diagnosed Date Resolved Date Screening examination for STI 03/06/2025 03/11/2025 Encounters Date Type Department Care Team Description 03/25/2025 12:20 PM CDT Office Visit [address] [address] [address] [place] [address] Gerda Brown, DOCTOR OF PHARMACY Weight Problem 03/25/2025 Travel 03/18/2025 Orders Only [address] [place] [address] Vonnie Bentley MD 03/17/2025 MyChart Message Enc [address] [place], [place] [id number] Gerda Brown, DOCTOR OF PHARMACY 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 03/07/2025 Results Follow-Up [address] [place] [address] Gerda Brown, DOCTOR OF PHARMACY ALBUMIN URINE RANDOM W/CREATININE, CHLAM/GC/TRICHOMONA S PROFILE 03/06/2025 3:40 PM CDT Office Visit [address] [place] [address] Gerda Brown, DOCTOR OF PHARMACY ER F/U 03/06/2025 - 03/06/2025 11:59 PM CDT Hospital Encounter [facility] [address] [place] [address] Gerda Brown, DOCTOR OF PHARMACY Discharge Disposition: Home or Self Care (Routine Discharge) 03/06/2025 Travel 03/06/2025 Telephone [address] [place] [address] Gerda Brown, DOCTOR OF PHARMACY Record Request 02/26/2025 12:54 PM CDT - 02/26/2025 3:52 PM CDT Emergency [facility] [place] [address] Jacqui Vogel PA Urinary Symptoms Discharge Disposition: Home or Self Care (Routine Discharge) 02/26/2025 Travel 02/26/2025 MyChart Message Enc [address] [address] [place] [address] Gerda Brown, DOCTOR OF PHARMACY UTI 02/22/2025 3:59 PM CDT - 02/22/2025 11:59 PM CDT Hospital Encounter [facility] [address] [place] [address] Gerda Brown, DOCTOR OF PHARMACY Discharge Disposition: Home or Self Care (Routine Discharge) 02/22/2025 3:43 PM CDT - 02/22/2025 3:58 PM [place] [address] Gerda Brown, DOCTOR OF PHARMACY Discharge Disposition: Home or Self Care (Routine Discharge) 02/22/2025 9:00 AM CDT [facility] [address] [address] [facility] [address] [place] [address] Gerda Brown, DOCTOR OF PHARMACY UTI 02/22/2025 - 02/22/2025 3:42 PM CDT Hospital Encounter [facility] [address] Stephanie, Gerda N, DOCTOR OF PHARMACY Discharge Disposition: Home or Self Care (Routine Discharge) 02/22/2025 Misc Documentation [facility] Medical [facility] [place] [address] [place] [address] Gerda Brown, DOCTOR OF PHARMACY Medication 02/22/2025 Results [facility] [place] [address] [place] [address] Gerda Brown, DOCTOR OF PHARMACY CT ABD+PEL KIDNEY STONE, CBC W/DIFF AUTOMATED, COMPREHENSIVE METABOLIC PANEL, Additional followed-up results: 2 02/22/2025 Travel 02/19/2025 MyChart Message Enc [facility] [place] [address] [place] [address] Gerda Brown, DOCTOR OF PHARMACY Upset Stomach from Last 3 Months Immunizations Immunization Administration Dates Next Due Bcg Live 09/24/2000 Dtap (Acel-Immune) 12/03/2004, 1,05/10/2000,01/24,1999 Fluzone (IIV3, Trivalent, 0. 5 ML Prefilled Syringe) 04/04/2024 H1N1 2009 Influenza Vaccine 07/07/2009 HPV 07/12/2013,12/24/2011 HPV4 (Gardasil) 12/28/2012 Hepatitis A (Havrix [address]) 03/31/2002, 002 Hepatitis B Pediatric 06/20/2000,1999,12/1999 Hib (Omni-Hib) 12/21/2000, 0,01/25/2000,11/18 Influenza (FluMist) 02/14/2014, 3,01/15/2011,01/12,07/07/2009,04/09/2009 Influenza (Generic) 03/14/2008, 7,03/22/2006,05/18,03/21/2004,04/19/2003,03/19/2003 Influenza Adult (Generic) 03/17/2020,,03/09/2016,04/15 MMR (MMRII) 12/03/2004,12/21/2000 Meningcoccal Group B (Bexser o)(aka Meningitis) 05/19/2019 Meningcoccal Group B (Trumen ba)(aka Meningitis) 12/19/2019 Meningococcal (Menactra) 09/27/2015 Meningococcal (Menomune) 01/15/2011 Pneumococcal (Prevnar 7) 09/24/2000,10/1999,01/25/2000,11/18 Polio IPV (Ipol) 12/03/2004, 1,01/25/2000,11/18 Tdap (Adacel) 03/06/2025 Tdap (Generic) 01/15/2011 Varicella (Varivax) 05/06/2007,09/24/2000 Family History Medical History Relation Comments Heart Disease Father DE- 6 stents Liver Disease Father Diabetes Maternal Grandmother Breast Cancer Mother Cancer Mother Hypertension Mother Kidney Disease Paternal Grandmother Ovarian Cancer Paternal Grandmother Relation Status Comments Father Alive Maternal Grandmother Alive Mother Alive Paternal Grandmother Social History Tobacco Use Types Packs/Day Years Used Date Smoking Tobacco: Never Passive Smoke Exposure: Never Smokeless Tobacco: Never Tobacco Cessation:Counseling Given: No Alcohol Use Standard Drinks/Week Comments Yes 8 (1 standard drink = 0.6 oz pur e alcohol) PHQ-2 Answer Date Recorded Patient Health Questionnaire-2 Score 1 02/22/2025 Comments No Sex and Gender Information Value Date Recorded Sex Assigned at Female 11/15/2024 10:41 AM CDT Legal Sex Female 10:16 AM CDT Gender Identity Female 11/15/2024 10:41 AM CDT Sexual Orientation Not on file Last Filed [...] Mass Index 34.2 03/25/2025 12:18 PM CDT Plan of Treatment Upcoming Encounters Date Type Department Care Team (Late st Contact Info) Description 07/01/2025 2:00 PM 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 [place] [address] Jerry Sparrow MD [address] [facility] [place] [address] 08/21/2025 8:00 AM CDT [facility] [place] [address] [place] [address] Gerda Brown, DOCTOR OF PHARMACY [address] [place] [address] Health Maintenance Due Date Last Done Comments Cervical Cancer Screening Pap Smear (Age 21 to 29) Every 3 Years 1999 Cervical Cancer Screening 1999 Meningococcal B Vaccine (2 of 2 - Bexsero SCDM 2-dose series) 04/20/2020 12/19/2019, 05/19/2019 COVID-19 Vaccine ( season) 2025 06/02/2021, 11/12/2020, 10/21/2020 Influenza Adult (#1) 2025 04/04/2024, 03/17/2020, 03/19/2019, Additional history exists Annual Physical 04/04/2025 04/04/2024 DTaP, Tdap and Td Vaccines (8 - Td or Tdap) 03/06/2035 03/06/2025, 01/15/2011, 12/03/2004, Additional history exists Hepatitis B Vaccines Completed 06/20/2000, 1999, 1999 Pneumococcal Vaccine: Pediatrics (0 to 5 Years) and At-Risk Patients (6 to 49 Years) Aged Out 09/24/2000, 05/10/2000, 01/25/2000, Additional history exists No longer eligible based on patient's age to complete this topic Hepatitis A Vaccines Completed 03/31/2002, 09/14/19 02 HPV Vaccines Completed 07/12/2013, 12/05, 12/24/2011 Meningococcal Vaccine Completed 09/27/2015, 011 Hepatitis C Completed 04/04/2024 PHQ-2 (Physician [place]) Completed 02/22/2025 RSV Immunizations Under 20 Months Aged Out No longer eligible based on patient's age to complete this topic Procedures Procedure Name Priority Date/Time Associated Diagnosis Comments CHLAM/GC/TRICHOMONAS PROFILE Routine 03/06/2025 4:31 PM CDT Screening examination for STI ALBUMIN URINE RANDOM W/CREATININE Routine 03/06/2025 4:31 PM CDT Protein screening CT ABD+PEL W CON STAT 02/26/2025 1:52 PM CDT POCT URINE (BACK OFFICE) STAT 02/26/2025 1:12 PM CDT URINE BACTERIA CULTURE STAT 1:01 PM CDT HC URINALYSIS AUTO W/O MICRO STAT 02/26/2025 1:01 PM CDT LACTIC ACID W REFLEX (SEPSIS) STAT 02/26/2025 12:57 PM CDT COMPREHENSIVE METABOLIC PANEL STAT 02/26/2025 12:57 PM CDT CBC W/DIFF AUTOMATED STAT 02/26/2025 12:[address] ABD+PEL KIDNEY STONE STAT 02/22/2025 4:27 PM CDT Dysuria Right flank pain COMPREHENSIVE METABOLIC PANEL Routine 02/22/2025 3:49 PM CDT Dysuria Right flank pain CBC W/DIFF AUTOMATED Routine 02/22/2025 3:49 PM CDT Dysuria Right flank pain URINE BACTERIA CULTURE Routine 9:57 AM CDT Dysuria URINALYSIS AUTO DIP Routine 02/22/2025 Dysuria HEPATITIS C ANTIBODY Routine 04/04/2024 10:53 AM CDT Need for hepatitis C screening test from Last 3 Months or Most Recently Relevant to Health Maintenance Results * CHLAM/GC/TRICHOMONAS PROFILE (03/06/2025 4:31 PM CDT) SPEC DESCRIPTION URINE 03/06/20 4:31 PM CDT [facility] CHLAMYDIA RNA TMA NEGATIVE NEGATIVE 025 8:39 AM CDT [facility] Comment:PERFORMED BY NUCLEIC ACID AMPLIFICATION N.GONORRHOEAE RNA TMA NEGATIVE NEGATIVE 03/08/2025 8:39 AM CDT [facility] Comment:PERFORMED BY NUCLEIC ACID AMPLIFICATION TRICHOMONAS NEGATIVE NEGATIVE 03/08/2025 8:39 AM CDT [facility] Comment:PERFORMED BY NUCLEIC ACID AMPLIFICATION URINE SPECIMEN / Unknown 03/06/2025 4:31 PM CDT Gerda Brown NP MICROBIOLOGY - GENERAL ORDE MELY Final Result [facility] [address] [place] [address], * ALBUMIN URINE RANDOM W/CREATININE (03/06/2025 4:31 PM CDT) MICROALBUMIN (U) 13.8 <20 MG/L 03/07/20 9:33 AM CDT [facility] CREATININE RANDOM (U) 351.8 MG/DL 03/07/2025 9:33 AM CDT [facility] ALBUMIN/CREAT RATIO 3.9 <30 MG/G 03/07/2025 9:33 AM CDT [facility] PRIETO URINE SPECIMEN / Unknown 03/06/2025 4:31 PM CDT Gerda Brown DOCTOR OF PHARMACY URINE ORDERABLES Final Resu lt [facility] [place] [address] [place] [address], * CT ABD+PEL W IV CON ONLY (02/26/2025 1:52 PM CDT) Anatomical Region Laterality Modality Abdomen Computed Tomogra phy 02/26/2025 2:25 PM CDT Impressions 02/26/2025 2:28 PM CDT IMPRESSION: 1. No acute findings. Ordered By: MCAI VALDERRAMA Interpreted By: Alejandro James MD, 02/26/2025 2:25 PM Narrative 02/26/2025 2:[address] [facility] [address] [place], [place] [address] CT ABDOMEN AND PELVIS WITH CONTRAST Exam date:02/26/2025 1:46 PM Clinical history: Flank pain. Technique: Dynamic helical images of the abdomen and pelvis were obtained. The patient received approximately 100 mL of Isovue 370 nonionic intravenous contrast through an IV in the left antecubital fossa. A dose lowering technique was used for this procedure, which may include, but is not limited to, dose reduction technique, automated exposure control, the use of iterative reconstruction, and ALARA (As Low As Reasonably Achievable) / Image Gently techniques. Comparison: February 22, 2025. FINDINGS: Images of the lower thorax demonstrate the visualized portion of the heart to appear normal. The lung bases are clear. Images of the abdomen demonstrate the overall size and morphology of the liver to be within normal limits. No hepatic lesions are observed. No ascites is seen. The gallbladder is surgically absent. The pancreas, spleen, and adrenal glands appear grossly normal. The left kidney is surgically or congenitally absent. The right kidney is normal in size. There is normal homogeneous enhancement throughout and no significant perinephric stranding is present. Images of the pelvis demonstrate the urinary bladder to appear normal. The uterus is normal in size and resides in an anteverted position in the mid pelvis. The adnexa appear normal. The stomach and small bowel have a normal overall appearance. The appendix appears normal. The colon is within normal limits Procedure Note Alejandro James MD - 02/26/[address] [address] [address] ABDOMEN AND PELVIS WITH CONTRAST Exam date:02/26/2025 1:46 PM Clinical history: Flank pain. Technique: Dynamic helical images of the abdomen and pelvis were obtained.The patient received approximately 100 mL of Isovue 370 nonionicintravenous contrast through an IV in the left antecubital fossa. A doselowering technique was used for this procedure, which may include, but isnot limited to, dose reduction technique, automated exposure control, theuse of iterative reconstruction, and ALARA (As Low As ReasonablyAchievable) / Image Gently techniques. Comparison: February 22, 2025. FINDINGS: Images of the lower thorax demonstrate the visualized portion of the heartto appear normal. The lung bases are clear. Images of the abdomen demonstrate the overall size and morphology of theliver to be within normal limits. No hepatic lesions are observed. Noascites is seen. The gallbladder is surgically absent. The pancreas,spleen, and adrenal glands appear grossly normal. The left kidney issurgically or congenitally absent. The right kidney is normal in size.There is normal homogeneous enhancement throughout and no significantperinephric stranding is present. Images of the pelvis demonstrate the urinary bladder to appear normal. Theuterus is normal in size and resides in an anteverted position in the midpelvis. The adnexa appear normal. The stomach and small bowel have a normal overall appearance. The appendixappears normal. The colon is within normal limits IMPRESSION: 1. No acute findings. Ordered By: MACI VALDERRAMA Interpreted By: Alejandro James MD, 02/26/2025 2:[address] Final Resul t * POCT urine (02/26/2025 1:12 PM CDT) URINE HCG TEST NEGATIVE Internal Control: VALID 02/26/2025 1:12 PM CDT Maci DEE POINT OF CARE TEST ORDERABL ES Final Result * (ABNORMAL) URINALYSIS (02/26/2025 1:01 PM CDT) SPECIMEN TYPE URINE CLEAN CATCH 02/26/2025 1:[address] [facility] COLOR (U) COLORLESS 02/26/2025 1:[address] [facility] TRANSPARENCY CLEAR 02/26/2025 1:[address] [facility] SPECIFIC GRAVITY (U) 1.005 1.001 - 1.030 02/26/2025 1:[address] [facility] U PH 6.0 5.0 - 9.0 02/26/2025 1:[address] [facility] LEUKOCYTES (U) 75(A) NEGATIVE 02/26/2025 1:[address] [facility] NITRITES NEGATIVE NEGATIVE 02/26/2025 1:[address] [facility] PROTEIN RANDOM (U) NEGATIVE <30 MG/DL 02/26/2025 1:[address] [facility] GLUCOSE (U) NORMAL NORMAL MG/DL 02/26/2025 1:[address] [facility] KETONES MG/DL (U) NEGATIVE NEGATIVE MG/DL 02/26/2025 1:[address] [facility] UROBILINOGEN NORMAL NORMAL MG/DL 02/26/2025 1:[address] [facility] BILIRUBIN (U) NEGATIVE NEGATIVE MG/DL 02/26/2025 1:[address] [facility] BLOOD (U) NEGATIVE NEGATIVE 02/26/2025 1:[address] [facility] WBC/HPF 8(H) <6 /HPF 02/26/2025 1:[address] [facility] RBC/HPF 2 <6 /HPF 02/26/2025 1:[address] [facility] BACTERIA (U) MANY(A) NONE /HPF 02/26/2025 1:[address] [facility] SQUAMOUS EPITHELIALS RARE /HPF 02/26/2025 1:[address] [facility] URINE SPECIMEN OBTAINED BY CLEAN CATCH PROCEDURE / Unknown 02/26/2025 1:01 PM CDT us Maci DEE URINE ORDERABLES Final Resu lt [facility] [address] [place] [address], [place] [phone] * URINE BACTERIA CULTURE (02/26/2025 1:01 PM CDT) Only the most recent of2 resultswithin the time period is included. SPEC DESCRIPTION URINE CLEAN CATCH 02/26/2025 1:[address] [facility] SPECIAL REQUESTS NO SPECIAL REQUEST 02/26/2025 1:[address] [facility] CULTURE RESULT POLYMICROBIAL GROWTH CONSISTENT WITH NORMAL GENITAL PEREZ. SUSCEPTIBILITIES NOT ROUTINELY PERFORMED. 02/27/2025 10:[address] [facility] URINE SPECIMEN OBTAINED BY CLEAN CATCH PROCEDURE / Unknown 02/26/2025 1:01 PM CDT 02/26/2025 1:09 PM CDT Jacqui DEE MICROBIOLOGY - GENERAL ORDERA BLES Final Result Performing Organization Address City/[facility]/ZIP Co de Phone Number [facility] [address] [place] [address], [place] [phone] * LACTIC ACID W REFLEX (SEPSIS) (02/26/2025 12:57 PM CDT) LACTIC ACID VENOUS 1.4 0.4 - 2.0 MMOL/L 02/26/2025 1:[address] [facility] 02/26/2025 12:5 7 PM CDT Jacqui DEE LABORATORY Final Result Performing Organization Address [facility] Co de Phone Number [facility] [address] [place] [address], [place] [phone] * (ABNORMAL) COMPREHENSIVE METABOLIC PANEL (02/26/2025 12:57 PM CDT) Only the most recent of2 resultswithin the time period is included. GLUCOSE 84 70 - 99 MG/DL 02/26/2025 1:[address] [facility] BUN 11 7 - 18 MG/DL 02/26/2025 1:[address] [facility] CREATININE S/P/B 1.01 0.55 - 1.02 MG/DL 02/26/2025 1:[address] [facility] SODIUM S/P/B 139 136 - 145 MMOL/L 02/26/2025 1:[address] [facility] POTASSIUM S/P/B 3.8 3.5 - 5.1 MMOL/L 02/26/2025 1:[address] [facility] CHLORIDE S/P/B 107 97 - 115 MMOL/L 02/26/2025 1:[address] [facility] CO2 24.5 21 - 32 MMOL/L 02/26/2025 1:[address] [facility] CALCIUM S/P/B 9.6 8.5 - 10.1 MG/DL 02/26/2025 1:[address] [facility] BILIRUBIN TOTAL S/P/B 0.5 0.2 - 1.2 MG/DL 02/26/2025 1:[address] [facility] Comment: THIS ASSAY IS NOT RECOMMENDED FOR PATIENTS UNDERGOING TREATMENT WITH ELTROMBOPAG DUE TO THE POTENTIAL FOR FALSELY ELEVATED RESULTS. TOTAL PROTEIN S/P/B 7.6 6.4 - 8.2 G/DL 02/26/2025 1:[address] [facility] ALBUMIN S/P/B 4.0 3.4 - 5.0 G/DL 02/26/2025 1:[address] [facility] AST 16 15 - 37 U/L 02/26/2025 1:[address] [facility] ALT 35 14 - 55 U/L 02/26/2025 1:[address] [facility] ALKALINE PHOSPHATASE S/P/B 88 50 - 136 U/L 02/26/2025 1:[address] [facility] ANION GAP 7.5 2 - 10 MMOL/L 02/26/2025 1:[address] [facility] BUN CREATININE RATIO 10.9 6 - 26 02/26/2025 1:[address] [facility] A/G RATIO 1.1 1.0 - 2.0 RATIO 02/26/2025 1:[address] [facility] GFR ESTIMATE 79(L) >90 ML/MIN/1.7 3 M2 02/26/2025 1:[address] [facility] Comment: NOTE: eGFR is not calculated for patients <18 years of age or gender unknown. This is an estimated GFR calculation using the new CKD EPI creatinine equation without race and so does not require a correction factor for race. This estimated GFR should not be used for calculating drug doses. 02/26/2025 12:5 7 PM CDT us Jacqui DEE LABORATORY Final Result [facility] [address] [place] [address], * CBC W/DIFF AUTOMATED (02/26/2025 12:57 PM CDT) Only the most recent of2 resultswithin the time period is included. WBC 8.57 4.5 - 11.0 x10'3/uL 02/26/2025 1:[address] [facility] RBC 5.02 4.20 - 5.40 x10'6/uL 02/26/2025 1:[address] [facility] HGB 14.7 12.0 - 16.0 G/DL 02/26/2025 1:[address] [facility] HCT 44.1 38.0 - 48.0 % 02/26/2025 1:[address] [facility] MCV 87.8 81.0 - 99.0 FL 02/26/2025 1:[address] [facility] MCH 29.3 27.0 - 31.0 PG 02/26/2025 1:[address] [facility] MCHC 33.3 32.0 - 36.0 G/DL 02/26/2025 1:[address] [facility] RDW 12.9 11.5 - 14.5 % 02/26/2025 1:[address] [facility] PLT 289 130 - 400 x10'3/uL 02/26/2025 1:[address] [facility] MPV 9.6 9.3 - 12.2 FL 02/26/2025 1:[address] [facility] DIFFERENTIAL TYPE AUTOMATED DIFFERENTIAL 02/26/2025 1:[address] [facility] NEUTROPHILS % 66.9 % 02/26/2025 1:[address] [facility] LYMPHOCYTES % 27.2 % 02/26/2025 1:[address] [facility] MONOCYTES % 3.9 % 02/26/2025 1:[address] [facility] EOSINOPHILS 1.2 % 02/26/2025 1:[address] [facility] BASOPHILS 0.4 % 02/26/2025 1:[address] [facility] IMMATURE GRANS % 0.4 % 02/27/20 1:[address] [facility] ABS. NEUTROPHILS 5.75 1.80 - 7.70 x10'3/uL 02/26/2025 1:[address] [facility] ABS. LYMPHOCYTES 2.33 1.00 - 4.80 x10'3/uL 02/26/2025 1:[address] [facility] ABS. MONOCYTES 0.33 0.24 - 0.86 x10'3/uL 02/26/2025 1:[address] [facility] ABS. EOSINOPHILS 0.10 0.04 - 0.36 x10'3/uL 02/26/2025 1:[address] [facility] ABS. BASOPHILS 0.03 0.01 - 0.08 x10'3/uL 02/26/2025 1:[address] [facility] ABS. IMMATURE GRANULOCYTES 0.03 0.00 - 0.49 x10'3/uL 02/26/2025 1:[address] [facility] 02/26/2025 12:5 7 PM CDT [facility] Final Resul t [facility] [address] [place] [address], [place] [phone] * CT ABD+PEL KIDNEY STONE (02/22/2025 4:27 PM CDT) Anatomical Region Laterality Modality Abdomen Computed Tomogra phy 02/22/2025 4:34 PM CDT Impressions 02/22/2025 4:41 PM CDT IMPRESSION: 1. No renal or ureteric stones identified. There is no hydronephrosis. 2. No CT evidence of bowel obstruction or acute appendicitis. 3. Nonspecific mesenteric lymph nodes measuring up to 8 mm in short axis. Continued attention on follow-up is recommended. Referred By: GERDA BROWN Interpreted By: Doug Stern MD, 02/22/2025 4:34 PM Narrative 02/22/2025 4:41 PM CDT [address] [address] PROCEDURE: CT ABD+PEL KIDNEY STONE HISTORY: Right flank pain. TECHNIQUE: Helical CT of the abdomen and pelvis was performed without intravenous contrast. A dose lowering technique was used for this procedure, which may include, but is not limited to, dose reduction technique, automated exposure control, the use of iterative reconstruction, and ALARA (As Low As Reasonably Achievable) / Image Gently techniques. COMPARISON: None. FINDINGS CT ABDOMEN/PELVIS: Lower thorax: There is subsegmental atelectasis in the lower lobes. The heart is normal in size. Liver: The liver is normal in size. No intrahepatic mass is seen on this non- contrast exam. Biliary tree: The patient is post cholecystectomy. There is no biliary ductal dilatation. Spleen: The spleen is normal in size. Pancreas: The pancreas is normal in size. There are no pancreatic calcifications. The pancreatic duct is not dilated. Adrenal glands: The right adrenal gland is unremarkable. There is a 22 mm left adrenal nodule, likely adrenal adenoma. Kidneys: There is no hydronephrosis. No renal stones are seen. Left kidney is absent. Lymph nodes: Abdomen: There is no abdominal adenopathy. Multiple prominent mesenteric lymph nodes measuring up to 4 mm in short axis. Pelvis: There is no pelvic adenopathy.Prominent right ileocolic lymph nodes measuring up to 8 mm in short axis. Vasculature: There is no abdominal aortic aneurysm. Atherosclerotic calcification is seen. Peritoneum/mesentery/omentum: There is no free fluid or free air. GI tract: There is no bowel obstruction. There is no abnormal bowel wall thickening to suggest acute inflammation. Moderate fecal burden within the colon, which can be seen with constipation. The appendix normal. Pelvic urogenital structures:The bladder is poorly distended and not well evaluated. The uterus is present. There is no adnexal mass. Body wall: There are degenerative changes in the spine. No aggressive osseous lesions are identified. Limitations: Evaluation of the solid parenchymal organs and vasculature is limited due to lack of intravenous contrast. Oneill: (S/I) = series number / image number Procedure Note Doug Stern MD - 02/22/[address] [address] PROCEDURE: CT ABD+PEL KIDNEY STONE HISTORY: Right flank pain. TECHNIQUE: Helical CT of the abdomen and pelvis was performed withoutintravenous contrast. A dose lowering technique was used for this procedure, which may include,but is not limited to, dose reduction technique, automated exposurecontrol, the use of iterative reconstruction, and ALARA (As Low AsReasonably Achievable) / Image Gently techniques. COMPARISON: None. FINDINGS CT ABDOMEN/PELVIS: Lower thorax: There is subsegmental atelectasis in the lower lobes. Theheart is normal in size. Liver: The liver is normal in size. No intrahepatic mass is seen on thisnon- contrast exam. Biliary tree: The patient is post cholecystectomy. There is no biliaryductal dilatation. Spleen: The spleen is normal in size. Pancreas: The pancreas is normal in size. There are no pancreaticcalcifications. The pancreatic duct is not dilated. Adrenal glands: The right adrenal gland is unremarkable. There is a 22 mmleft adrenal nodule, likely adrenal adenoma. Kidneys: There is no hydronephrosis. No renal stones are seen. Leftkidney is absent. Lymph nodes: Abdomen: There is no abdominal adenopathy. Multiple prominent mesentericlymph nodes measuring up to 4 mm in short axis. Pelvis: There is no pelvic adenopathy.Prominent right ileocolic lymphnodes measuring up to 8 mm in short axis. Vasculature: There is no abdominal aortic aneurysm. Atheroscleroticcalcification is seen. Peritoneum/mesentery/omentum: There is no free fluid or free air. GI tract: There is no bowel obstruction. There is no abnormal bowel wallthickening to suggest acute inflammation. Moderate fecal burden withinthe colon, which can be seen with constipation. The appendix normal. Pelvic urogenital structures:The bladder is poorly distended and not wellevaluated. The uterus is present. There is no adnexal mass. Body wall: There are degenerative changes in the spine. No aggressiveosseous lesions are identified. Limitations: Evaluation of the solid parenchymal organs and vasculature islimited due to lack of intravenous contrast. Oneill: (S/I) = series number / image number IMPRESSION: 1. No renal or ureteric stones identified. There is no hydronephrosis. 2. No CT evidence of bowel obstruction or acute appendicitis. 3. Nonspecific mesenteric lymph nodes measuring up to 8 mm in short axis.Continued attention on follow-up is recommended. Referred By: GERDA BROWN Interpreted By: Doug Stern MD, 02/22/2025 4:34 PM Gerda Brown NP CT Final Resul t * (ABNORMAL) URINALYSIS AUTO DIP (02/22/2025) Pathologist [facility] COLOR (U) YELLOW YELLOW MG-[address], [place] TRANSPARENCY CLEAR CLEAR MG[address], [place] GLUCOSE (U) NEGATIVE NEGATIVE MG/DL MG-[address], [place] BILIRUBIN (U) NEGATIVE NEGATIVE MG-[address], [place] KETONES MG/DL (U) NEGATIVE NEGATIVE MG/DL MG-[address], [place] SPECIFIC GRAVITY (U) 1.015 1.001 - 1.035 MG-[address], [place] BLOOD (U) NEGATIVE NEGATIVE MG-[address], [place] U PH 7.5 5.0 - 9.0 MG-[address], [place] PROTEIN (U) NEGATIVE NEGATIVE mg/dL MG-[address], [place] UROBILINOGEN 0.2 0.2 - 1.0 EU/dL = mg/dL MG-[address], [place] NITRITES NEGATIVE NEGATIVE MG/DL MG-[address], [place] LEUKOCYTES (U) 1+ (SMALL)(A) NEGATIVE MG-[address], [place] URINE SPECIMEN OBTAINED BY CLEAN CATCH PROCEDURE / Unknown 02/22/2025 Gerda Brown NP URINE ORDERABLES Final Resu lt MG-[address], [place] [address] [place] [address], * HEPATITIS C ANTIBODY (04/04/2024 10:53 AM CDT) Pathologist [facility] HEPATITIS C AB NON-REACTI VE NON-REACT BLUE 04/04/2024 6:23 PM CDT [facility] Comment: ANTIBODIES TO HCV NOT DETECTED. DOES NOT EXCLUDE THE POSSIBILITY OF EXPOSURE TO HCV. 04/04/2024 10:5 3 AM CDT Gerda Brown NP LABORATORY Final Resul t [facility] [address] [place] [address], [place] [phone] [id number] from Last 3 Months or Most Recently Relevant to Health Maintenance [facility] Care Teams Scuba Diving Teacher Relationship Specialty Start Date End Date Gerda Brown, [place] [address] [place] [address] PCP - General NURSE PRACTITIONER 04/03/24
--- OUTSIDE RECORDS SUMMARY | 2025-03-26 19:58 | XMS_ITS | Encounter Summary ---
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, [address] [address] 08/21/2025 8:00 AM CDT Office Visit [facility] - [address] [place] [address] eGrda Brown, ACTUARIAL MATHEMATICIAN [address] [facility] [address] [place] [address] documented as of this encounter Visit Diagnoses Not on filedocumented in this encounter Additional Health Concerns Assessment Noted Time PHQ-9 Depression Total Score: 4 02/23/20 25 9:26 AM CDT documented as of this encounter Care Teams Mineral Engineer Relationship Specialty Start Date End Date Gerda Brown NP [address] [facility] [address] [place] [address] PCP - General NURSE PRACTITIONER 04/03/24 documented as of this encounter
--- OUTSIDE RECORDS SUMMARY | 2025-03-26 19:58 | XMS_ITS | Encounter Summary ---
Author Organization [facility] Address [address] [place] [address] Care Team Providers Care Hide Cooking Operator Name Role Phone Gerda Brown OFFICE ADMIN Primary Care Provider [phone] Encounter Details Date Type Department Care Team (Latest Contact Info) Description 03/17/2025 MyChart Message Enc [facility] Multispecialty [facility] [place] [facility] [place] 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 3 [facility], [place] [address] [place] [phone] Jerry Sparrow MD 3 [facility], [address] [address] 08/21/2025 8:00 AM CDT Office Visit [facility] Mult[facility] - [place] [address] [place] [address] Gerda Brown NP [address] [place] [address] documented as of this encounter Visit Diagnoses Not on filedocumented in this encounter Additional Health Concerns Assessment Noted Time PHQ-9 Depression Total Score: 4 02/23/20 25 9:26 AM CDT documented as of this encounter Care Teams Hide Cooking Operator Relationship Specialty Start Date End Date Gerda Brown NP [address] [place] [address] PCP - General NURSE PRACTITIONER 04/03/24 documented as of this encounter
--- OUTSIDE RECORDS SUMMARY | 2025-03-26 19:58 | XMS_ITS | Clinical Summary ---
Author Organization [facility] Address [address] [place] [address] Care Team Providers Care Thread Grinder Name Role Phone Gerda Brown Lorraine Primary Care Provider [phone] [facility],non-owned Affiliates and Associated Physician Practices is amultiple site organization consisting of ambulatory clinics and hospital sitesin [place], [place], [place] and [place]. This disclosure is being madepursuant to the Care Everywhere program and may not contain all information available regarding this patient. Last updated 18.[facility] [place] Allergies Active Allergy Reactions Criticality Noted Date Comments Clarithromycin Rash Medium 08/22/2012 Codeine Rash Medium 10/23/2020 Latex Rash Medium 08/22/2012 Cefdinir Rash Medium 08/22/2012 Cefpodoxime Rash Medium 08/22/2012 Medications * Be aware that medications may not be up to date on this document. Alwaysverify current medications with the patient. Levonorgestrel- Ethinyl Estrad (KURVELO PO) Active sertraline (Zoloft) 50 MG tablet Take 1 (one) tablet by mouth once daily Active desipramine (Norpramin) 10 MG tablet Take 1 (one) tablet by mouth at bedtime Active ubrogepant (Ubrelvy) 100 MG tablet Take 1 (one) tablet by mouth daily as needed - may repeat one time for Migraine No more than 2 doses in 24 hours. Active amoxicillin-cla vulanate (Augmentin) 875-125 MG tablet Active topiramate (Topamax) 25 MG tablet Take 1 (one) tablet by mouth 2 times daily Active Active Problems Problem Noted Date Diagnosed Date Vitamin D deficiency 12/19/2019 Symptoms referable to hand joint 12/17/2019 Stress 05/19/2019 Dysfunction of eustachian tube 03/19/2015 Non-smoker 03/19/2015 Perforation of ear drum 03/11/2015 Arthralgia of shoulder 12/15/2012 Body mass index, pediatric, 85th percentile to less than 95th percentile for age Resolved Problems Problem Noted Date Diagnosed Date Resolved Date Allergy status to other anti biotic agents status 08/22/2012 05/19/2019 Overview (09/05/2017): Concern of multiple antibiotic allergies - symptoms not consistent with IgE-mediated reaction, but ? Hives with Augmentin - will plan for PCN-skin testing in October 2012. Allergic rhinitis 05/19/2019 Encounters Date Type Department Care Team Description 01/03/2025 Telephone [facility] - Endocrinology [address] [place] [phone] Ivana Pedraza MD Results (Patient called back to get lab results) 12/26/2024 3:00 PM CDT Office Visit [facility] - Endocrinology [address] [place] [phone] Dionisio Anaya MD Hypoglycemia (Primary Dx) 12/26/2024 Travel from Last 3 Months Immunizations Immunization Administration Dates Next Due BCG VACCINE JAIL 09/24/2000 DTaP VACCINE IM (6wk-6yrs) 12/03/2004,,05/10/2000,01/24,1999 HEP A PEDS 2 DOSE 03/31/2002,09/13/2001 HEP B VACCINE, PED/ADOL 06/20/2000,1999, HIB-PRP-T 4 DOSE 12/21/2000, 0,01/25/2000,11/18 Human Papilloma Virus Vaccine 07/12/2013, 013,12/24/2011 INFLUENZA A [id number] VACCINE 07/07/2009 INFLUENZA VACCINE 03/09/2016, 5,03/14/2008,05/06,03/22/2006,05/18/2005,03/21/2004 ,04/19/2003,03/19/2003 INFLUENZA VACCINE, QUADR. (F LUZONE; FLULAVAL; FLUARIX; AFLURIA QUADRIVALENT; 6MO+), 0.5 ML (IIV4) 03/17/2020,03/19/2019 Influenza Nasal 02/14/2014, 3,01/15/2011,01/12,07/07/2009,04/09/2009 MENINGOCOCAL MENINGITIS 09/27/2015,01/15/2011 MENINGOCOCCAL B RECOMBINANT, 2 OR 3 DOSE, IM 12/19/2019 MMR 12/03/2004,12/21/2000 Meningococcal B Recombinant 2 Dose, IM 9 PNEUMOCOCCAL PCV7 CONJ, PEDS 09/24/2000, 05/10/2000,01/25/2000,11/18 POLIO IPV 12/03/2004, 1,01/25/2000,11/18 TDAP (7yrs+) 01/15/2011 VARICELLA 05/06/2007,09/24/2000 Family History Medical History Relation Name Comments CAD (Coronary Artery Disease) Father Other - Hepatic/Liver Father nonalc oholic liver disease CAD (Coronary Artery Disease) Maternal Grandfather Diabetes - Type 2 Maternal Grandfather Hypertension Maternal Grandfather Diabetes - Type 2 Maternal Grandmother Hypertension Maternal Grandmother Hyperlipidemia Mother Hypertension Mother Aneurysm, Aortic Paternal Grandfather Renal Disease Paternal Grandmother Relation Name Status Comments Father Alive Maternal Grandfather Maternal Grandmother Alive Mother Alive Paternal Grandfather Alive Paternal Grandmother Alive Social History Tobacco Use Types Packs/Day Years Used Date Smoking Tobacco: Never Smokeless Tobacco: Never Alcohol Use Standard Drinks/Week Comments Yes 2 (1 standard drink = 0.6 oz pur e alcohol) AUDIT-C Answer Date Recorded Frequency of Alcohol Consumption Monthly or less 05/19/2019 Average Number of Drinks 1 or 2 019 Frequency of Binge Drinking Not on file 05/06 Comments Unknown Sex and Gender Information Value Date Recorded Sex Assigned at Not on file Legal Sex Female 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 Gender Identity Not on file Sexual Orientation Not on file Last Filed Vital Signs Vital Sign Reading Time Taken Comments Blood Pressure 128/92 12/26/2024 3:38 PM CDT Pulse 83 12/26/2024 3:38 PM CDT Temperature 36.4 C (97.5 F) 05/23/2020 9:01 AM EMBOSSOGRAPH OPERATOR Respiratory Rate 16 05/23/2020 9:01 AM EMBOSSOGRAPH OPERATOR Oxygen Saturation 98% 12/26/2024 3:38 PM CDT Inhaled Oxygen Concentration - - Weight 84.5 kg (186 lb 3.2 oz) 12/26/2024 3:38 P M CDT Height 157.5 cm (5' 2) 12/26/2024 3:38 PM CDT Body Mass Index 34.06 12/26/2024 3:38 PM CDT Plan of Treatment Upcoming Encounters Date Type Department Care Team (Late st Contact Info) Description 04/17/2025 2:20 PM EMBOSSOGRAPH OPERATOR Office Visit [facility] - Endocrinology [address] [facility] [place] [phone] Ivana Pedraza MD [address] [facility] [place] [phone] Health Maintenance Due Date Last Done Comments HIV SCREENING 09/08/2014 CHLAMYDIA/GONORRHEA SCREENING 2015 PAP SMEAR 09/08/2020 DTAP/TDAP/TD VACCINES (7 - T d or Tdap) 01/15/2021 01/15/2011, 12/03/2004, 03/14/2001, Additional history exists DEPRESSION SCREENING 06/06/2024 COVID-19 VACCINE (2023-2 5 season) 2025 INFLUENZA VACCINE (#1) 2025 , 03/17/2020, 03/19/2019, Additional history exists ZOSTER VACCINE (1 of 2) 09/08/2049 HEPATITIS B VACCINE Completed 06/20/2000, 1999, 1999 PNEUMOCOCCAL VACCINE Completed 09/24/2000, 05/10/2000, 01/25/2000, Additional history exists HIB VACCINE Completed 12/21/2000, 10/1999, 01/25/2000, Additional history exists HPV VACCINE Completed 07/12/2013, 12/05, 12/24/2011 MENINGOCOCCAL GROUPS A/C/Y/W VACCINE Completed 09/27/2015, 01/15/2011 MENINGOCOCCAL (Group B) VACC INE SHARED DECISION-MAKING Discontinued 12/19/2019, 05/19/2019 HEPATITIS C SCREENING Completed 04/04/2024 Insurance [facility] Address: [facility] [id number] [place] [phone] Care Teams Thread Grinder Relationship Specialty Start Date End Date Gerda Brown [address] [facility] [address] [place] [address] PCP - General Preservative Filler Machine Operator 12/03/24
[2025-03-26] MEDS: NITROFURANTOIN MONOHYD MACROCR 100 MG CAP PO (20:55)
[2025-03-26] MEDS: TIZANIDINE HCL 2 MG TABLET PO (20:55)
[2025-03-26] MEDS: KETOROLAC 15 MG/ML VIAL (*BKC) IV PUSH (20:55)
== END 2025-03-26 21:00 | disposition home or self-care (01) ==
PROVIDERS: Emergency Provider Registered Nurse; PCP Obstetrics & Gynecology
DX: S06.0X0A Concussion without loss of consciousness, initial encounter (principal); S13.4XXA Sprain of ligaments of cervical spine, initial encounter; S39.012A Strain of muscle, fascia and tendon of lower back, initial encounter; N39.0 Urinary tract infection, site not specified; V43.52XA Car driver injured in collision with other type car in traffic accident, initial encounter
CPT/HCPCS: 36415; 70450; 71260; 72125; 72129; 72132; 73110; 74177; 80053; 81001; 81025; 85025; 87086; 96374; 96375; 99284; A9270; J1885; J3010; Q9967